=== PATIENT | female | born 1955 ===

== ENCOUNTER 2019-07-20 06:17 | Day surgery (SDC) | payer OTHER ==
[~2019-07-20 06:17] MED LIST: SYNTHROID100 MCG PO
[2019-07-20] MEDS ORDERED: MACROBID 100 M100 MG PO (10:47)
[2019-07-20] MEDS ORDERED: ULTRACET PO (10:48)
== END 2019-07-20 13:55 | disposition home or self-care (01) ==
LOC: CIR.AMB 06:17
DX: N81.11 Cystocele, midline (principal); N81.5 Vaginal enterocele